=== PATIENT | male | born 1965 | race Caucasian/White ===

== ENCOUNTER 2017-09-19 12:59 | Emergency (ER) | payer OTHER ==
[2017-09-19 13:06] VITALS: TEMP 98.2
--- NOTE | 2017-09-19 14:28 | EDPHY ---
H & P Time Seen by Provider: 09/19/17 13:59 HPI/ROS: CHIEF COMPLAINT: Right ankle injury HISTORY OF PRESENT ILLNESS: Patient today got his leg trapped while wrestling injuring his right ankle. Pain on standing REVIEW OF SYSTEMS: No other injuries. PAST MEDICAL HISTORY: Asthma General Appearance: Alert and conversant, cooperative. Patient has swelling and tenderness on both malleolus eye of the right ankle. Foot is nontender. Skin is intact. Normal motor sensory and dorsalis pedis pulse. Normal range of motion of the knee. Ankle is stable. Lateral tenderness on the calf proximally. Emergency Department course/MDM: X-rays reviewed with the patient at 2:26 p.m.. Procedure: Splint placement. A right long leg Ortho Glass splint was applied. After application of the splint I returned and re-examined the patient. The splint was adequately immobilizing the joint and distal to the splint the patient's circulation and sensation was intact. Crutches, nonweightbearing, mandatory Ortho follow-up. Smoking Status: Never smoked Constitutional: Initial Vital Signs Temperature (C) 36.8 C 09/19/17 13:00 Heart Rate 71 09/19/17 13:00 Respiratory Rate 16 09/19/17 13:00 Blood Pressure 148/86 H 09/19/17 13:00 O2 Sat (%) 95 09/19/17 13:00 O2 Delivery Mode Room Air Allergies/Adverse Reactions: No Known Allergies Allergy (Verified 09/19/17 13:03) Home Medications: Medication Instructions Recorded Budesonide/Formoterol 160/4.5 1 puffs IH BID 06/12/15 [Symbicort 160-4.5 Mcg Inhaler] MDM/Departure - [facility] Imaging Results: Imaging Impressions Ankle X-Ray 09/19/17 13:06 Impression: Acute minimally displaced posterior malleolar distal tibial fracture. Tibia/Fibula X-Ray 09/19/17 14:05 Impression: Nondisplaced proximal fibular fracture. - Depart Disposition: Home, Routine, Self-Care Clinical Impression: Closed right fibular fracture Qualifiers: Encounter type: initial encounter Fibula location: proximal Fracture morphology : unspecified fracture morphology Qualified Code(s): S82.831A - Other fracture of upper and lower end of right fibula, initial encounter for closed fracture Fracture of posterior malleolus of right tibia Qualifiers: Encounter type: initial encounter Fracture type: closed Qualified Code(s): S82.391A - Other fracture of lower end of right tibia, initial encounter for closed fracture Condition: Good Instructions: Crutch Instructions (ED), Splint Care (ED) Additional Instructions: Nonweightbearing. Please call Orthopedics for office follow-up within the next week. Referrals: Cj Ricci MD [Primary Care Provider] - As per Instructions Juan Alvarado MD [Medical Doctor] - 5-7 days, call for appt. (Orthopedic follow -up, this week if possible.)
[2017-09-19 14:53] VITALS: BP 133/77; PULSE 66; RESP 18; O2SAT 99
== END 2017-09-19 14:53 | disposition home or self-care (01) ==
PROC: 2W3QX1Z Immobilization of Right Lower Leg using Splint (ICD-10-PCS; principal; 2017-09-19)
DX: S82.831A Other fracture of upper and lower end of right fibula, initial encounter for closed fracture (principal); S82.51XA Displaced fracture of medial malleolus of right tibia, initial encounter for closed fracture; J45.909 Unspecified asthma, uncomplicated; X50.9XXA Other and unspecified overexertion or strenuous movements or postures, initial encounter; Y99.8 Other external cause status; Y93.72 Activity, wrestling

== ENCOUNTER 2018-08-23 08:18 | Observation (INO) | payer OTHER ==
[2018-08-23] MEDS ORDERED: KETOROLAC 30 MG/1 ML SDV IVP ONE (08:42)
[2018-08-23] MEDS ORDERED: NS 1,000 ML IV ONE (08:42)
[2018-08-23] MEDS ORDERED: TAMSULOSIN HCL 0.4 MG CAP PO ONE (08:43)
[2018-08-23 08:49] LABS: PLATELET COUNT 254 10^3/uL (150-400)
--- NOTE | 2018-08-23 08:49 | EDPHY ---
H & P Time Seen by Provider: 08/23/18 08:42 HPI/ROS: CHIEF COMPLAINT: "I have a kidney stone" HISTORY OF PRESENT ILLNESS: The patient is a 52-year-old male who presents emergency department with a history of kidney stones. His previous kidney stone was on the right and needed to be surgically removed. He states it was the size of this sugars tube. Patient noticed symptoms a few days ago when he started the see hematuria. He developed right flank pain today. His pain is moderate to severe. It is not worse with movement. He has had nausea and vomiting. No fevers or chills. No abdominal pain. No dysuria. REVIEW OF SYSTEMS: 10 systems were reveiwed and are negative with the exception of the elements mentioned in the history of present illness. Past Medical/Surgical History: Includes asthma and kidney stone Past surgical history: Orthopedics Social history: Patient is . He does not smoke. Smoking Status: Never smoked Physical Exam: Vitals noted GENERAL: Well-appearing, in no acute distress, alert. HEENT: Eyes normal to inspection, normal pharynx, no signs of dehydration. NECK: Normal, supple. RESPIRATORY: Clear to auscultation bilaterally, no rales, rhonchi or wheezing. CVS: Regular rate and rhythm, no rubs, murmurs, or gallops. ABDOMEN: Soft, nontender, nondistended, no organomegaly. Benign BACK: Normal to inspection, no CVA tenderness. SKIN: Normal color, no rash, warm, dry. No pallor. EXTREMITIES: No pedal edema, no joint swelling. NEURO/PSYCH: Alert and oriented, normal mood and affect. Constitutional: Initial Vital Signs Temperature (C) 36.6 C 08/23/18 08:25 Heart Rate 62 08/23/18 08:25 Respiratory Rate 18 08/23/18 08:25 Blood Pressure 165/97 H 08/23/18 08:25 O2 Sat (%) 98 08/23/18 08:25 O2 Delivery Mode Room Air Allergies/Adverse Reactions: No Known Allergies Allergy (Verified 08/23/18 08:22) Home Medications: Medication Instructions Recorded Budesonide/Formoterol 160/4.5 1 puffs IH BID 06/12/15 [Symbicort 160-4.5 Mcg Inhaler] Ondansetron Odt [Zofran Odt 4 mg 4 mg PO Q4PRN PRN #7 tab 08/23/18 (*)] Tamsulosin HCl [Flomax] 0.4 mg PO DAILY #4 cap 08/23/18 oxyCODONE/APAP 5/325 [Percocet 1 - 2 tab PO Q4PRN PRN #11 tab 08/23/18 5/325 (*)] Medical Decision Making - Diagnostics Imaging Results: Imaging Impressions Abdomen/Pelvis CT 08/23/18 08:47 Impression: 1. Moderate right hydroureteronephrosis secondary to 6 mm obstructing distal right ureterolithiasis at the mid pelvis region. 2. No left nephrolithiasis or left hydronephrosis. 3. Degenerative lower lumbar spine. Attention: This CT examination is specifically designed to evaluate patients who are clinically suspected of having acute obstructive uropathy. This examination does not use radiographic contrast, and as such, provides only a limited evaluation of the abdomen, pelvis and retroperitoneum. If there is further clinical suspicion for pathological conditions other than obstructive uropathy, a complete CT evaluation of the abdomen and pelvis utilizing intravenous, oral, and rectal contrast should be considered. Findings and recommendations discussed with Emergency Department physician, Edilma Rodríguez, at 0918 hours, 08/23/2018. Final report concurs with initial preliminary interpretation. ED Course/Re-evaluation: In the emergency department I discussed possible etiologies with the patient. I answered all his questions. IV was placed. Patient was given normal saline 1 L IV for hydration. He is given Toradol 30 mg IV for pain. He is given Flomax 0.[address] of his abdomen and pelvis was ordered. Laboratory studies were obtained. Patient's creatinine is normal 1.1. Chemistry panel is unremarkable. CT of the abdomen pelvis: Please refer the dictated report. The patient has a 6 mm distal ureteral stone on the right. There is moderate hydronephrosis. The patient also has a right renal calculus. I rechecked the patient while here. His pain is controlled. He states he feels much better. His abdomen is benign. I discussed the diagnosis with the patient. Patient will be observed for 20 more minutes. On recheck the patient developed severe right flank pain. He is given fentanyl IV. On recheck the patient was feeling better. He was given Percocet 2 tablets orally. He will be observed. On recheck the patient's pain returned. He was having severe right flank pain. He is given a repeat dose of fentanyl I V. Discussed the case with Dr. Hinkle from urology. He recommended contacting the hospitalist service. They will consult. I discussed the case with the hospitalist for admission. Differential Diagnosis: My differential includes but is not limited to urinary tract infection, pyelonephritis, kidney stone, small-bowel obstruction, perforation - Data Points Laboratory Results: Laboratory Results 08/23/18 08:30 08/23/18 08:30 08/23/18 08/23/18 08/23/18 09:57 08:39 08:30 WBC RBC Hgb POC Hgb 16.3 gm/dL gm/dL (13.7-17.5) Hct POC Hct 48 % % (40-51) MCV MCH MCHC RDW Plt Count MPV Neut % (Auto) Lymph % (Auto) [place] % (Auto) Eos % (Auto) Baso % (Auto) Nucleat RBC Rel Count Absolute Neuts (auto) Absolute Lymphs (auto) Absolute Monos (auto) Absolute Eos (auto) Absolute Basos (auto) Absolute Nucleated RBC Immature Gran % Immature Gran # POC Sodium 140 mEq/L mEq/L (135-145) Sodium 138 mEq/L mEq/L (135-145) POC Potassium 3.7 mEq/L mEq/L (3.3-5.0) Potassium 4.1 mEq/L mEq/L (3.3-5.0) POC Chloride 105 mEq/L mEq/L (97-110) Chloride 104 mEq/L mEq/L (97-110) Carbon Dioxide 25 mEq/l mEq/l (22-31) Anion Gap 9 mEq/L mEq/L (8-16) POC BUN 28 mg/dL H mg/dL (7-23) BUN 30 mg/dL H mg/dL (7-23) Creatinine 1.1 mg/dL mg/dL (0.7-1.3) POC Creatinine 1.1 mg/dL mg/dL (0.7-1.3) Estimated GFR > 60 Glucose 112 mg/dL H mg/dL (70-100) POC Glucose 114 mg/dL H mg/dL (70-100) Calcium 9.8 mg/dL mg/dL (8.5-10.4) Urine Color YELLOW Urine Appearance CLEAR Urine pH 5.0 (5.0-7.5) Ur Specific [place] 1.023 (1.002-1.030) Urine Protein NEGATIVE (NEGATIVE) Urine Ketones NEGATIVE (NEGATIVE) Urine Blood 3+ H (NEGATIVE) Urine Nitrate NEGATIVE (NEGATIVE) Urine Bilirubin NEGATIVE (NEGATIVE) Urine Urobilinogen NEGATIVE EU EU (0.2-1.0) Ur Leukocyte Esterase NEGATIVE (NEGATIVE) Urine RBC 50-182 /hpf H /hpf (0-3) Urine WBC 1-3 /hpf /hpf (0-3) Ur Epithelial Cells TRACE /lpf /lpf (NONE-1+) Urine Bacteria TRACE /hpf H /hpf (NONE SEEN) Hyaline Casts 1-5 /lpf /lpf (0-1) Urine Mucus TRACE /lpf /lpf (NONE-1+) Urine Glucose NEGATIVE (NEGATIVE) 08/23/18 08:30 WBC 5.53 10^3/uL 10^3/uL (3.80-9.50) RBC 5.04 10^6/uL 10^6/uL (4.40-6.38) Hgb 15.9 g/dL g/dL (13.7-17.5) POC Hgb Hct 45.7 % % (40.0-51.0) POC Hct MCV 90.7 fL fL (81.5-99.8) MCH 31.5 pg pg (27.9-34.1) MCHC 34.8 g/dL g/dL (32.4-36.7) RDW 12.5 % % (11.5-15.2) Plt Count 254 10^3/uL 10^3/uL (150-400) MPV 9.0 fL fL (8.7-11.7) Neut % (Auto) 41.0 % % (39.3-74.2) Lymph % (Auto) 43.6 % % (15.0-45.0) [place] % (Auto) 9.8 % % (4.5-13.0) Eos % (Auto) 4.5 % % (0.6-7.6) Baso % (Auto) 1.1 % % (0.3-1.7) Nucleat RBC Rel Count 0.0 % % (0.0-0.2) Absolute Neuts (auto) 2.27 10^3/uL 10^3/uL (1.70-6.50) Absolute Lymphs (auto) 2.41 10^3/uL 10^3/uL (1.00-3.00) Absolute Monos (auto) 0.54 10^3/uL 10^3/uL (0.30-0.80) Absolute Eos (auto) 0.25 10^3/uL 10^3/uL (0.03-0.40) Absolute Basos (auto) 0.06 10^3/uL 10^3/uL (0.02-0.10) Absolute Nucleated RBC 0.00 10^3/uL 10^3/uL (0-0.01) Immature Gran % 0.0 % % (0.0-1.1) Immature Gran # 0.00 10^3/uL 10^3/uL (0.00-0.10) POC Sodium Sodium POC Potassium Potassium POC Chloride Chloride Carbon Dioxide Anion Gap POC BUN BUN Creatinine POC Creatinine Estimated GFR Glucose POC Glucose Calcium Urine Color Urine Appearance Urine pH Ur Specific [place] Urine Protein Urine Ketones Urine Blood Urine Nitrate Urine Bilirubin Urine Urobilinogen Ur Leukocyte Esterase Urine RBC Urine WBC Ur Epithelial Cells Urine Bacteria Hyaline Casts Urine Mucus Urine Glucose Medications Given: Discontinued Medications Fentanyl (Sublimaze) 100 mcg IVP EDNOW ONE Stop: 08/23/18 09:48 Last Admin: 08/23/18 09:50 Dose: 100 mcg Fentanyl (Sublimaze) 100 mcg IVP EDNOW ONE Stop: 08/23/18 11:15 Last Admin: 08/23/18 11:15 Dose: 100 mcg Sodium Chloride (Ns) 1,000 mls @ 0 mls/hr IV EDNOW ONE; Wide Open PRN Reason: Protocol Stop: 08/23/18 08:43 Last Admin: 08/23/18 08:47 Dose: 1,000 mls Ketorolac Tromethamine (Toradol) 30 mg IVP EDNOW ONE Stop: 08/23/18 08:43 Last Admin: 08/23/18 08:48 Dose: 30 mg Ondansetron HCl (Zofran) 4 mg IVP EDNOW ONE Stop: 08/23/18 09:48 Last Admin: 08/23/18 09:50 Dose: 4 mg Oxycodone/Acetaminophen (Percocet 5/325) 2 tab PO EDNOW ONE Stop: 08/23/18 10:34 Last Admin: 08/23/18 10:35 Dose: 2 tab Tamsulosin HCl (Flomax) 0.4 mg PO EDNOW ONE Stop: 08/23/18 08:44 Last Admin: 08/23/18 08:47 Dose: 0.4 mg Point of Care Test Results: Chemistry 08/23/18 08:39 POC Sodium 140 mEq/L mEq/L (135-145) POC Potassium 3.7 mEq/L mEq/L (3.3-5.0) POC Chloride 105 mEq/L mEq/L (97-110) POC BUN 28 mg/dL H mg/dL (7-23) POC Creatinine 1.1 mg/dL mg/dL (0.7-1.3) POC Glucose 114 mg/dL H mg/dL (70-100) ISTAT H&H 08/23/18 08:39 POC Hgb 16.3 gm/dL gm/dL (13.7-17.5) POC Hct 48 % % (40-51) Departure - Departure Disposition: [facility] Inpatient Acute Clinical Impression: Kidney stone on right side Condition: Good Instructions: Kidney Stones (ED) Additional Instructions: You have a 6 mm kidney stone in your ureter on the right side. You also have a kidney stone in the base of your right kidney. Take Motrin 3 times daily for the next 3 days. If you developed more pain take your prescription medication. You have also been given anti nausea medication. Use the strainer provided to collect your kidney stone. Referrals: Cj Ricci MD [Primary Care Provider] - As per Instructions Shakeel Gutierrez MD [Medical Doctor] - As per Instructions Campbell Hinkle MD [Medical Doctor] - 5-7 days, call for appt. Prescriptions: Ondansetron Odt [Zofran Odt 4 mg (*)] 4 mg PO Q4PRN PRN #7 tab PRN Reason: For Nausea & Vomiting oxyCODONE/APAP 5/325 [Percocet 5/325 (*)] 1 - 2 tab PO Q4PRN PRN #11 tab PRN Reason: For Moderate To Severe Pain Tamsulosin HCl [Flomax] 0.4 mg PO DAILY #4 cap
[2018-08-23] MEDS ORDERED: fentaNYL 100 MCG/2 ML INJ IVP ONE ×3 (09:47→12:27)
[2018-08-23] MEDS ORDERED: ONDANSETRON 4 MG/2 ML VIAL IVP ONE (09:47)
[2018-08-23] MEDS ORDERED: OXYCODONE/APAP 5/325 TAB PO ONE (10:33)
[2018-08-23] MEDS ORDERED: fentaNYL 100 MCG/2 ML INJ ONE (11:10)
[2018-08-23] MEDS ORDERED: HYDROmorphONE/DILAUDID 1 MG/ML INJ ONE (12:02)
[2018-08-23] MEDS ORDERED: HYDROmorphONE/DILAUDID 1 MG/ML INJ IVP ONE (12:04)
[2018-08-23] MEDS ORDERED: PROMETHAZINE HCL 25 MG TAB PO PRN (13:10)
[2018-08-23] MEDS ORDERED: ONDANSETRON DISINTEGRATING 4 MG TAB PO PRN (13:10)
[2018-08-23] MEDS ORDERED: ONDANSETRON 4 MG/2 ML VIAL IVP PRN (13:10)
[2018-08-23] MEDS ORDERED: ACETAMINOPHEN 325 MG TAB PO PRN (13:10)
[2018-08-23] MEDS ORDERED: PROMETHAZINE HCL 25 MG/ML INJ IVP PRN (13:10)
[2018-08-23] MEDS ORDERED: KETOROLAC 15 MG/1 ML SDV IVP PRN (13:12)
[2018-08-23] MEDS ORDERED: NS 1,000 ML IV SCH (13:15)
--- NOTE | 2018-08-23 14:22 | ASMTCMCOM ---
CM Note CM Note Notes: Chart reviewed. 52 year old male admitted via ED with flank pain. Diagnosis of nephrolithiasis per CT, Urology to see. CM to follow for needs. Plan: TBD Date Signed: 08/23/2018 02:21 PM Electronically Signed By:Lynne Damico RN
--- NOTE | 2018-08-23 15:19 | SOAPPROG ---
[place] Progress Note Assessment/Plan: Assessment: Kidney stone on right side Acute Ureterolithiasis Acute discussed dx and options. Pain subsided at this time and desires no intervention. Discussed DC home and see in office Sunday for elective scheduled rx later in week if pt desires. He may stay tonite and rx in AM--decision pending. Plan: as noted 08/23/18 15:16 Subjective: stone and pain related to stone addressed in ER, no pain at this time and prefers no surgical rx today Objective: Vital Signs Temp Pulse Resp BP Pulse Ox 36.9 C 64 14 141/80 H 95 08/23/18 12:56 08/23/18 12:56 08/23/18 12:56 08/23/18 12:56 08/23/18 12:56 08/22/18 08/23/18 08/24/18 05:59 05:59 05:59 Intake Total 1999 Balance 1999 Physical Exam - Physical Exam General Appearance: alert Neck: supple Respiratory: No respiratory distress Cardiac/Chest: regular rate, rhythm Abdomen: soft Back: No CVA tenderness Skin: warm/dry Neuro/Psych: alert, oriented x 3 ICD10 Worksheet Patient Problems: Problems Problem Status Onset Kidney stone on right side Acute Ureterolithiasis Acute - ICD10 Problem Qualifiers (1) Ureterolithiasis
[2018-08-23 15:34] VITALS: BP 143/86
--- NOTE | 2018-08-23 16:07 | PDGENHP ---
History and Physical - Chief Complaint Acute flank pain - History of Present Illness Primary care provider: Dr. Cj Ricci HPI: 52-year-old male presenting with acute pain located in his right flank, characterized as moderate to severe with associated nausea and vomiting, onset of symptoms on the day of presentation and duration persistent thereafter. His symptoms were alleviated with a combination of fentanyl, Percocet, Toradol, Flomax received in the emergency department. Reports that his symptoms were preceded by several days of gross hematuria. He endorses that he has continued to exercise at an extreme level and he does not believe that he has been obtaining appropriate oral hydration during his activity. He otherwise denies any changes in urine output or consistency other than the gross hematuria. History Information - Allergies/Home Medication List Allergies/Adverse Reactions: No Known Allergies Allergy (Verified 08/23/18 08:22) Home Medications: Budesonide/Formoterol 80/4.5 [Symbicort 80-4.5 Mcg Inhaler] 2 puffs IH BID 08/23 [Last Taken 08/22/18] I have personally reviewed and updated: family history, medical history, social history, surgical history - Past Medical History Additional medical history: Right-sided nephrolithiasis - Surgical History Additional surgical history: Cystoscopy October of 2010. 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 Review of Systems Review of Systems: ROS: 10pt was reviewed & negative except for what was stated in HPI & below Genitourinary: Reports: hematuria, other (Flank pain) Physical Exam Physical Exam: Temp Pulse Resp BP Pulse Ox 36.9 C 62 16 143/86 H 94 08/23/18 15:33 08/23/18 15:33 08/23/18 15:33 08/23/18 15:33 08/23/18 15:33 Constitutional: no apparent distress, not in pain, other (Muscular build), No uncomfortable Eyes: PERRL, anicteric sclera, EOMI Ears, Nose, Mouth, Throat: moist mucous membranes, hearing normal, ears appear normal, no oral mucosal ulcers Cardiovascular: regular rate and rhythym, no murmur, rub, or gallop, No edema Respiratory: no respiratory distress, no rales or rhonchi, clear to auscultation Gastrointestinal: normoactive bowel sounds, soft, non-tender abdomen, no palpable masses Genitourinary: no bladder fullness, no bladder tenderness, other (No CVA tenderness, no right-sided inguinal tenderness) Skin: warm, No erythema, No rash Neurologic: AAOx3, No facial droop Psychiatric: interacting appropriately, not anxious, not encephalopathic, thought process linear Lab Data & Imaging Review 08/23/18 08:30 08/23/18 08:30 WBC 5.53 10^3/uL (3.80-9.50) 08/23/18 08:30 RBC 5.04 10^6/uL (4.40-6.38) 08/23/18 08:30 Hgb 15.9 g/dL (13.7-17.5) 08/23/18 08:30 POC Hgb 16.3 gm/dL (13.7-17.5) 08/23/18 08:39 Hct 45.7 % (40.0-51.0) 08/23/18 08:30 POC Hct 48 % (40-51) 08/23/18 08:39 MCV 90.7 fL (81.5-99.8) 08/23/18 08:30 MCH 31.5 pg (27.9-34.1) 08/23/18 08:30 MCHC 34.8 g/dL (32.4-36.7) 08/23/18 08:30 RDW 12.5 % (11.5-15.2) 08/23/18 08:30 Plt Count 254 10^3/uL (150-400) 08/23/18 08:30 MPV 9.0 fL (8.7-11.7) 08/23/18 08:30 Neut % (Auto) 41.0 % (39.3-74.2) 08/23/18 08:30 Lymph % (Auto) 43.6 % (15.0-45.0) 08/23/18 08:30 [place] % (Auto) 9.8 % (4.5-13.0) 08/23/18 08:30 Eos % (Auto) 4.5 % (0.6-7.6) 08/23/18 08:30 Baso % (Auto) 1.1 % (0.3-1.7) 08/23/18 08:30 Nucleat RBC Rel Count 0.0 % (0.0-0.2) 08/23/18 08:30 Absolute Neuts (auto) 2.27 10^3/uL (1.70-6.50) 08/23/18 08:30 Absolute Lymphs (auto) 2.41 10^3/uL (1.00-3.00) 08/23/18 08:30 Absolute Monos (auto) 0.54 10^3/uL (0.30-0.80) 08/23/18 08:30 Absolute Eos (auto) 0.25 10^3/uL (0.03-0.40) 08/23/18 08:30 Absolute Basos (auto) 0.06 10^3/uL (0.02-0.10) 08/23/18 08:30 Absolute Nucleated RBC 0.00 10^3/uL (0-0.01) 08/23/18 08:30 Immature Gran % 0.0 % (0.0-1.1) 08/23/18 08:30 Immature Gran # 0.00 10^3/uL (0.00-0.10) 08/23/18 08:30 POC Sodium 140 mEq/L (135-145) 08/23/18 08:39 Sodium 138 mEq/L (135-145) 08/23/18 08:30 POC Potassium 3.7 mEq/L (3.3-5.0) 08/23/18 08:39 Potassium 4.1 mEq/L (3.3-5.0) 08/23/18 08:30 POC Chloride 105 mEq/L (97-110) 08/23/18 08:39 Chloride 104 mEq/L (97-110) 08/23/18 08:30 Carbon Dioxide 25 mEq/l (22-31) 08/23/18 08:30 Anion Gap 9 mEq/L (8-16) 08/23/18 08:30 POC BUN 28 mg/dL (7-23) H 08/23/18 08:39 BUN 30 mg/dL (7-23) H 08/23/18 08:30 Creatinine 1.1 mg/dL (0.7-1.3) 08/23/18 08:30 POC Creatinine 1.1 mg/dL (0.7-1.3) 08/23/18 08:39 Estimated GFR > 60 08/23/18 08:30 Glucose 112 mg/dL (70-100) H 08/23/18 08:30 POC Glucose 114 mg/dL (70-100) H 08/23/18 08:39 Calcium 9.8 mg/dL (8.5-10.4) 08/23/18 08:30 Urine Color YELLOW 08/23/18 09:57 Urine Appearance CLEAR 08/23/18 09:57 Urine pH 5.0 (5.0-7.5) 08/23/18 09:57 Ur Specific [place] 1.023 (1.002-1.030) 08/23/18 09:57 Urine Protein NEGATIVE (NEGATIVE) 08/23/18 09:57 Urine Ketones NEGATIVE (NEGATIVE) 08/23/18 09:57 Urine Blood 3+ (NEGATIVE) H 08/23/18 09:57 Urine Nitrate NEGATIVE (NEGATIVE) 08/23/18 09:57 Urine Bilirubin NEGATIVE (NEGATIVE) 08/23/18 09:57 Urine Urobilinogen NEGATIVE EU (0.2-1.0) 08/23/18 09:57 Ur Leukocyte Esterase NEGATIVE (NEGATIVE) 08/23/18 09:57 Urine RBC 50-182 /hpf (0-3) H 08/23/18 09:57 Urine WBC 1-3 /hpf (0-3) 08/23/18 09:57 Ur Epithelial Cells TRACE /lpf (NONE-1+) 08/23/18 09:57 Urine Bacteria TRACE /hpf (NONE SEEN) H 08/23/18 09:57 Hyaline Casts 1-5 /lpf (0-1) 08/23/18 09:57 Urine Mucus TRACE /lpf (NONE-1+) 08/23/18 09:57 Urine Glucose NEGATIVE (NEGATIVE) 08/23/18 09:57 Visualized and Interpreted imaging results: Yes Interpretation: Moderate right-sided hydronephrosis with a 6 mm distal right- sided stone, abdominal CT Assessment & Plan Assessment: 52-year-old male presents with acute obstructive nephrolithiasis resulting in hydronephrosis, pain Plan: 1. Obstructive nephrolithiasis. Acute, new problem this provider, further workup indicated. Right-sided, imaging demonstrating a 6 mm distal right ureter stone, unlikely to past as is greater than 4 mm -reviewed outside records including 10/30/[address] Shakeel Gutierrez as well as cystoscopy, there is no record of the stone analysis or type of stone, at that time he received stenting for 5 mm stone -strain urine in attempt to obtain stone and/or stone fragments of comma as stone analysis would be helpful to this patient who is particularly attentive to his diet and hydration and would likely be amenable to education regarding any potential preventative treatment -supportive pain medication antiemetics -normal saline at 200 cc/hour -discussed with Dr. Hollis Hinkle, he has reported to me that Dr. Otto will evaluate the patient comma Urology consultation appreciated -pain is currently absent secondary to pain medication, but if it continues to recur, would recommend degree involving Urology tomorrow morning for possible cystoscopy and stone removal as it is unlikely that this stone will pass on its own -the patient was offered cystoscopy today, and he has declined, as he would like to see if the stone will pass without intervention 2. Hydronephrosis. Acute, right-sided, secondary to obstructing stone, requires stone passage or removal in order to prevent worsening renal function and chronic hydro Diet. Regular today, NPO after midnight for possible cystoscopy tomorrow if needed Prophylaxis. Low risk patient, SCDs Code. Full Disposition. Anticipated discharge 08/24, pending resolution of above.
--- NOTE | 2018-08-23 16:42 | ASMTLACE ---
[facility] Length of stay for Answers: Less than 1 day current admission # of Emergency department Answers: 1-2 visits in the last 6 months Score: 1 Date Signed: 08/23/2018 04:42 PM Electronically Signed By:Lynne Damico RN
--- NOTE | 2018-08-23 16:42 | ASDISCHSUM ---
Discharge Information Plan Status:Home with No Needs Medically Cleared to Leave:08/23/2018 Discharge Date:08/23/2018 CM D/C Disposition:Home, Routine, Self-Care ADT D/C Disposition:Home, Routine, Self-Care Projected Discharge Date:08/23/2018 Transportation at D/C:Family Discharge Delay Reason: Follow-Up Date:08/23/2018 Discharge Slot: Final Diagnosis: Placement Information Patient Contact Information Contact Name:LA Relationship: Address:[address] Work Phone: City:[place] Alternate Phone: State/Zip Code:[place] [address] Email: Financial Information Financial Class:HMO and PPO Plans Primary Plan Desc:[employer] Primary Plan Number:[id number] Secondary Plan Desc: Secondary Plan Number: Assessment Information [facility] CM Progress Note CM Note CM Note Notes: Chart reviewed. 52 year old male admitted via ED with flank pain. Diagnosis of nephrolithiasis per CT, Urology to see. CM to follow for needs. Plan: TBD Date Signed: 08/23/2018 02:21 PM Electronically Signed By:Lynne Damico RN Intervention Information
[2018-08-23] MEDS ORDERED: BUDESONIDE/FORMOTEROL 80/4.5 60 PUFFS/MDI IH SCH (21:00)
[2018-08-24] MEDS ORDERED: TAMSULOSIN HCL 0.4 MG CAP PO SCH (09:00)
== END 2018-08-23 18:09 | disposition home or self-care (01) ==
LOC: F1N 13:01
PROVIDERS: ADMIT Internal Medicine; ATTEND Internal Medicine
DX: N13.2 Hydronephrosis with renal and ureteral calculous obstruction (principal); E86.9 Volume depletion, unspecified; M51.36 Other intervertebral disc degeneration, lumbar region
CPT/HCPCS: 74176; 96374; 96375; 96376; 99285; G0378; 82435-PO; 82565-PO; 82947-PO; 84132-PO; 84295-PO; 84520-PO; 85014-PO; J1170; J1885; J2405; J3010